=== PATIENT | male | born 1985 ===

== ENCOUNTER 2021-05-16 12:35 | Emergency (ER) | payer SELFPAY ==
[~2021-05-16] VITALS: Ht 172.7 cm; Wt 81.8 kg
[2021-05-16] MEDS ORDERED: ZOFRAN ODT4 MG PO (13:36)
[2021-05-16] MEDS ORDERED: PREDNISONE20 MG PO (13:36)
[2021-05-16 13:48] VITALS: BP 132/69; PULSE 84; TEMP 98.7
== END 2021-05-16 13:52 | disposition home or self-care (01) ==
LOC: COL.ER 12:35
DX: U07.1 COVID-19 (principal)